=== PATIENT | male | born 1970 | race Caucasian/White ===

== ENCOUNTER 2019-07-26 23:51 | Emergency (ER) | payer SELFPAY ==
[~2019-07-26] VITALS: Ht 180.3 cm; Wt 70.0 kg
[2019-07-26 23:53] VITALS: BP 148/72
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
--- NOTE | 2019-07-27 00:58 | NUR ---
Pt eloped, attempted to get him back in pt room but he refused. Pt ambulatory and alert, refused to sign ama form
== END 2019-07-27 01:02 | disposition left against medical advice (07) ==
LOC: ED 07-27 00:56
DX: R11.10 Vomiting, unspecified (principal); Z53.21 Procedure and treatment not carried out due to patient leaving prior to being seen by health care provider

== ENCOUNTER 2021-01-02 09:09 | Emergency (ER) | payer MEDICAID ==
[~2021-01-02] VITALS: Ht 182.9 cm; Wt 83.0 kg
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
[2021-01-02] MEDS ORDERED: ACETAMINOPHEN 325 MG TABLET PO ONE (09:30)
[2021-01-02] MEDS ORDERED: LIDOCAINE-MPF 1%, 5ML INFIL ONE (09:30)
--- NOTE | 2021-01-02 10:00 | NUR ---
PT BACK FROM CT. AWAITING STAPLE SET UP
[2021-01-02 10:42] VITALS: BP 111/74
--- NOTE | 2021-01-02 10:43 | NUR ---
Patient given discharge instructions and they have confirmed that they understand the instructions. Patient ambulatory with steady gait. NAD, all questions answered appropriately, denies additional needs at this time. No personal belongings left in room after discharge.
== END 2021-01-02 10:44 | disposition home or self-care (01) ==
LOC: ED 10:40
DX: S01.01XA Laceration without foreign body of scalp, initial encounter (principal); Y04.8XXA Assault by other bodily force, initial encounter; Y93.89 Activity, other specified; Y92.59 Other trade areas as the place of occurrence of the external cause; Y99.8 Other external cause status
CPT/HCPCS: 12002; 70450; 99284